=== PATIENT | female | born 1990 | race Asian ===

== ENCOUNTER 2016-08-11 11:25 | Emergency (ER) | payer OTHER ==
[~2016-08-11] VITALS: Ht 170.2 cm; Wt 63.5 kg
[2016-08-11 12:03] LABS: BASOPHIL % 0.2 % (0-2); PLATELET COUNT 153 x10^3mcL (130-400); RED CELL DISTRIBUTION WIDTH 13.7 % (11.5-14.5)
[2016-08-11 12:20] LABS: CALCIUM 8.3 mg/dL (8.5-10.1); CARBON DIOXIDE 26.4 mmol/L (21-32); CHLORIDE SERUM 107 mmol/L (98-107); CREATININE SERUM 0.8 mg/dL (0.6-1.0); GFR1 > 60 mL/min; GLUCOSE SERUM 92 mg/dL (74-106); POTASSIUM SERUM 3.5 mmol/L (3.5-5.1); SODIUM SERUM 140 mmol/L (136-145)
[2016-08-11 12:25] LABS: ALBUMIN 3.7 g/dL (3.4-5.0); ALKALINE PHOSPHATASE 43 U/L (46-116); AST/SGOT 9 U/L (15-37); BILIRUBIN TOTAL 0.49 mg/dL (0.20-1.00); TOTAL PROTEIN, SERUM 7.2 g/dL (6.4-8.2)
[2016-08-11 12:38] LABS: ALT/SGPT 9 U/L (14-59)
[2016-08-11 13:35] VITALS: BP 112/68
== END 2016-08-11 13:39 | disposition home or self-care (01) ==
LOC: ED 11:25
PROVIDERS: Specialist
DX: E86.0 Dehydration (principal); D64.9 Anemia, unspecified
CPT/HCPCS: J7030